=== PATIENT | male | born 1985 | race Caucasian/White ===

== ENCOUNTER → 2024-10-02 12:36 | Outpatient (REF) | payer BC, SELFPAY ==
[2024-10-02 12:47] VITALS: BP 129/77; BP_SYST 61
[2024-10-02 13:46] VITALS: BP 117/74
== END ==
LOC: RADI 12:36
PROVIDERS: ATTENDING PHYSICIAN Podiatrist Foot & Ankle Surgery
DX: M67.471 Ganglion, right ankle and foot (principal)
CPT/HCPCS: 20606; 76882